=== PATIENT | male | born 1935 | race Caucasian/White ===

== ENCOUNTER 2017-01-14 13:02 | Observation (INO) | payer MEDICARE, OTHER ==
[2017-01-14] MEDS ORDERED: Acetaminophen 325 MG TAB PO PRN (15:03)
[2017-01-14] MEDS ORDERED: cloNIDine 0.1 MG TAB PO PRN (15:03)
[2017-01-14] MEDS ORDERED: Ondansetron HCl/PF 4 MG/2 ML Vial IVP PRN (15:03)
[2017-01-14] MEDS ORDERED: Nitroglycerin 0.4 MG TAB (25 Tab Bottle) SL PRN (15:03)
[2017-01-14] MEDS ORDERED: hydrALAZINE 20 MG/ML VIAL SLOW IVP PRN (15:03)
[2017-01-14] MEDS ORDERED: Benzonatate 100 MG CAP PO PRN (15:03)
[2017-01-14] MEDS ORDERED: Senokot 8.6 MG TAB PO PRN (15:03)
[2017-01-14] MEDS ORDERED: Calcium Carbonate 500 MG ChewTAB PO PRN (15:03)
[2017-01-14] MEDS ORDERED: traMADol HCl 50 MG TAB PO PRN (15:03)
[2017-01-14] MEDS ORDERED: Loratadine 10 MG TAB PO PRN (15:03)
[2017-01-14] MEDS ORDERED: Mag-Al 1200 mg/1200 mg/30 ML UDCUP PO PRN (15:03)
[2017-01-14] MEDS ORDERED: Bisacodyl 5 MG TAB PO PRN (15:03)
[2017-01-14] MEDS ORDERED: Diabetic Tussin 200 MG/10 ML UDCUP PO PRN (15:03)
[2017-01-14 15:58] LABS: Troponin I Less than 0.010 ng/mL (< 0.028)
--- NOTE | 2017-01-14 16:10 | ULT ---
BILATERAL CAROTID DUPLEX ULTRASOUND INCLUDING COLOR AND SPECTRAL DOPPLER IMAGING: History: 81-year-old male with TIA. FINDINGS: Minimal visual plaque in the origins of the right and left ICAs. PSV right ICA 100 cm/sec, EDV 34 cm/sec, ICA/CCA ratio of 1.2. PSV left ICA 65 cm/sec, EDV 13 cm/sec, ICA/CCA ratio is 0.6. Vertebral flow is antegrade. IMPRESSION: No hemodynamically significant stenosis. Very minimal visual plaque evidence for carotid artery compa rial vascular disease. POS: [facility]
[2017-01-14 16:37] VITALS: BMI 29.0
--- NOTE | 2017-01-14 18:41 | MRI ---
EXAM: MRI OF BRAIN WITHOUT CONTRAST 01/14/17 HISTORY: Transient ischemic attack. COMPARISON: None. TECHNIQUE: Brain MRI is performed without intravenous gadolinium administration. Multisequential, multiplanar i maging is performed. FINDINGS: No hemorrhage on the axial gradient echo sequence. No parenchymal mass, mass effect, or midline shift. Age appropriate atrophy. Cortical márquez-white matter differentiation is preserved. No evidence of hydrocephalus. Ventricles and sulci are patent and symmetric. T2 and FLAIR white matter hyperintensity due to chronic small vessel ischemic changes are noted. There is mild mass effect upon the left aspect of the brain stem due to ectasia of the left vertebra l artery. Central arterial flow voids are maintained. Absent restricted diffusion. Calvarium has a normal marrow signal intensity. Midline brain parenchymal structures are unremarkabl e. Minimally mucosal thickening of the ethmoid air cells. Mucous retention cyst in maxillary sinuses. M astoid air cells are adequately aerated. IMPRESSION: 1. No restricted diffusion. No acute infarct. 2. Chronic small vessel ischemic change of the white matter. POS: [facility]
[2017-01-14 19:08] LABS: Troponin I Less than 0.010 ng/mL (< 0.028)
[2017-01-14] MEDS ORDERED: Atorvastatin Calcium 20 MG TAB PO SCH (21:00)
[2017-01-14] MEDS ORDERED: FLU VACC TS2017-18 (>65YR) 0.5 ML SYRINGE IM ONE (21:00)
--- NOTE | 2017-01-14 21:16 | HP ---
DATE OF ADMISSION: 01/14/2017 PRIMARY CARE PHYSICIAN: Alejandro Bernal M.D. CHIEF COMPLAINT: Fall, imbalance and slurred speech. HISTORY OF PRESENT ILLNESS: Mr. Ortiz is a very pleasant 81-year-old male without any sig nificant comorbidities: who presented to the emergency room with the above-mentioned complaints. H istory is mainly obtained by the patient himself and supplemented by his present in the room. Electronic medical records have been reviewed and the case has been discussed with the admitting ER physician, Dr. Dennison. According to Mr. Ortiz, he woke up in the middle of last night to go to the bathroom, but felt lele ai weak and fell. He was able to catch himself and did not hit his head. He tried to get up, but fell again. At this time, he called his who helped him in the sitting position. She noticed t hat he has broke out in a sweat and walked him to the bedroom. There, his speech changed and he sta rted to slur his words. These symptoms are all short lasting and within few minutes, he was back to himself. They decided to wait until morning and called the primary care physician in the morning w ho told them to come to the emergency room. They presented to [facility] Emergency Room and was found to have atrial fibrillation and 12-le ad EKG with 85 beats per minute. The patient has no history of such and this is a new finding for h im. He was transferred to our facility for whatever reasons and is now being admitted to stroke jaye or for possible TIA and new onset atrial fibrillation. In the emergency room, he has received aspirin and is currently asymptomatic and feeling well. Jose ortiz is at bedside. The patient denies any recent illnesses. No nausea or vomiting. No chest pain, orthopnea, PND. He does feel somewhat weak lately, but he blames it on excessive driving. PAST MEDICAL HISTORY: History of prostate cancer, status post resection, it is in remission. PAST SURGICAL HISTORY: 1. Cholecystectomy. 2. Penile prosthesis implant. 3. Prostatectomy. SOCIAL HISTORY: He is and is very active. 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 No history of drug, tobacco or alcohol abuse. FAMILY HISTORY: Significant for diabetes and hypertension, but otherwise he denies any history of c oronary artery disease or strokes in his family. One of his brothers had Agent Dukes exposure and of lung cancer. ALLERGIES: No known medication allergies. CURRENT MEDICATIONS: None. The patient only take some nfmd-old-neyqgno vitamin supplements. REVIEW OF SYSTEMS: The following complete review of systems was negative, unless otherwise mentione d in the HPI or below: Constitutional: Weight loss or gain, ability to conduct usual activities. Skin: Rash, itching. Eyes: Double vision, pain. ENT/Mouth: Nose bleeding, neck stiffness, pain, tenderness. Cardiovascular: Palpitations, dyspnea on exertion, orthopnea. Respiratory: Shortness of breath, wheezing, cough, hemoptysis, fever or night sweats. Gastrointestinal: Poor appetite, abdominal pain, heartburn, nausea, vomiting, constipation, or diar ajay. Genitourinary: Urgency, frequency, dysuria, nocturia. Musculoskeletal: Pain, swelling. Neurologic/Psychiatric: Anxiety, depression. Allergy/Immunologic: Skin rash, bleeding tendency. It is negative except for those mentioned in the history and physical. LABORATORY DATA: 1. Labs are reviewed from [facility]. His serum chemistries are unremarkable. BUN 1 4, creatinine 1.28, bicarbonate 25. Sodium 144, potassium 4.1. Liver enzymes within normal limits. Cardiac enzymes below assay limit. 2. PT, PTT and INR are within normal limits. 3. CBC shows WBCs at 7, hemoglobin 15.5, hematocrit 45.9, and platelet count of 233. Chest x-ray d one at [facility] is negative for any acute process. CT scan of the head done without contrast at [facility], it is read by the radiologist as negative for any acute ische candace, infarction, mass lesion or midline shift. DIAGNOSTIC DATA: A 12-lead EKG done at the emergency room at [facility] shows atrial fibrillat ion by my review with 85 beats per minute. T-wave flattening noted in V2, V3 and V4. PHYSICAL EXAMINATION: VITAL SIGNS: Upon presentation, blood pressure 166/93, heart rate 72, respirations 18, saturating 9 5% on room air, and temperature 98. GENERAL: In no acute distress, awake, alert, oriented x3, very pleasant and no slurred speech notic ed. HEENT: Mucous membrane is moist and pink. No oropharyngeal exudate or erythema. Head is normoceph alic and atraumatic. Pupils are equal and reactive to light and accommodation. Extraocular movemen ts are intact. NECK: Supple without any lymphadenopathy, JVD or bruit. CHEST: Clear to auscultation without any wheezing, rales or rhonchi. Rate and rhythm is regular wi thout any murmur, rubs or gallops. ABDOMEN: Soft, nontender, nondistended, positive bowel sounds. EXTREMITIES: Free of any cyanosis, clubbing, or edema. NEUROLOGIC: Nonfocal. Cranial nerves II-XII grossly intact. Muscle strength is 5/5 in all 4 extre mities with normal sensation. Ieczll-ku-zeym testing is intact. Gait is not checked. PSYCHIATRIC: Normal affect. SKIN: Free of any rashes or bruises. Feels warm and dry to touch. IMPRESSION AND PLAN: 1. Transient ischemic attack/cerebrovascular accident. His history is suggestive of cerebrovascula r accident. He will be started and continued on full dose aspirin along with a statin for now. We will check a lipid panel. We will consult Neurology for further recommendations. They have ordered an echocardiogram as well as MRI of the brain, carotid ultrasound will be ordered for him. Most li denise source is embolic, given his new diagnosis of atrial fibrillation. He will be admitted to the stroke floor and stroke team will also be consulted. 2. New onset atrial fibrillation. The patient's CHADs VASc 2 score is low. However, if he indeed has had a cerebrovascular accident on MRI and because of symptoms suggest at least transient ischemi c attack: He might be a candidate for long-term anticoagulation. At this time, he is rate controll ed and will be monitored on telemetry. We will consult Cardiology for further recommendations and o btain a transthoracic echocardiogram. Notably, his repeat EKG showed normal sinus rhythm and some P VCs only. He might benefit from during Holter monitor. 3. History of prostate cancer. He is in remission. 4. Deep venous thrombosis and gastrointestinal prophylaxis. 5. Code status: FULL CODE. Discussed with the patient. DISPOSITION: Mr. Ortiz is being admitted under observation status for possible TIA/CVA and new onse t atrial fibrillation. Further management will depend upon his clinical course. Currently, he is h emodynamically stable.
[2017-01-14 22:09] LABS: Troponin I Less than 0.010 ng/mL (< 0.028)
[2017-01-15 06:06] LABS: #Basophils 0.1 thou/uL (0.0-0.2); #Eosinphils 0.1 thou/uL (0.0-0.7); #Lymphocytes 2.4 thou/uL (1.20-3.40); #Monocytes 0.6 thou/uL (0.11-0.59); #Neutrophils 4.1 thou/uL (1.40-6.50); %Basophils 0.8 % (0.0-1.0); %Eosinophils 1.1 % (0.0-10.0); %Lymphocytes 33.2 % (21.0-51.0); %Monocytes 8.3 % (0.0-10.0); Hematocrit 43.6 % (42.0-52.0); Mean Platelet Volume 7.3 fL (7.4-10.4); Red Blood Cell (RBC) Count 4.71 mill/uL (4.70-6.10); White Blood Cell (WBC) Count 7.2 thou/uL (4.8-10.8)
[2017-01-15 06:18] LABS: Anion Gap 12 mmol/L (10-20); BUN (Urea Nitrogen) 14 mg/dL (8.4-25.7); Calc. Creatinine Clearance 62 mL/min (70-130); Calcium 8.7 mg/dL (7.8-10.44); Carbon Dioxide 25 mmol/L (23-31); Chloride 105 mmol/L (98-107); Cholesterol 215 mg/dl (< 200 Desired); Estimated GFR-MDRD 55; LDL Cholesterol, Calculated 161 mg/dL
[2017-01-15] MEDS: Enoxaparin Sodium 40 MG/0.4 ML SYRINGE SC SCH (08:50)
[2017-01-15] MEDS: Aspirin 325 mg Enteric Coated Tablet PO SCH (08:58)
[2017-01-15] MEDS ORDERED: FLU VACC TS2017-18 (>65YR) 0.5 ML SYRINGE IM ONE (09:00)
[2017-01-15] MEDS: Metoprolol Tartrate 25 MG TAB PO SCH ×2 (09:37→20:35)
--- NOTE | 2017-01-15 12:05 | PDOC.PN ---
- Subjective Encounter Start Date: 01/15/17 Encounter Start Time: 12:04 Subjective: feels well. no palpitations/muscle weakness/chest pain/SOB/dizziness -: no imbalance - Objective MAR Reviewed: Yes Vital Signs & Weight: Vital Signs (12 hours) Temp Pulse Resp BP Pulse Ox 01/15/17 11:52 98.3 F 70 20 131/88 95 01/15/17 08:00 98.3 F 73 20 01/15/17 07:43 98.3 F 73 20 157/84 H 97 01/15/17 03:12 97.7 F 93 12 136/86 94 L Weight Weight 215 lb 6.4 oz I&O: 01/14/17 01/15/17 01/16/17 06:59 06:59 06:59 Intake Total 360 Balance 360 Result Diagrams: 01/15/17 04:45 01/15/17 04:45 Additional Labs: Laboratory Tests 01/14/17 01/14/17 01/14/17 15:25 18:20 21:39 Troponin I Less than 0.010 Less than 0.010 Less than 0.010 Triglycerides Cholesterol LDL Cholesterol, Calc HDL Cholesterol 01/15/17 04:45 Troponin I Triglycerides 106 Cholesterol 215 H LDL Cholesterol, Calc 161 HDL Cholesterol 33 Radiology Reviewed by me: Yes (MRI brain-no CVA.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) EKG Reviewed by me: Yes (NSR) Phys Exam - Physical Examination Constitutional: NAD HEENT: PERRLA, moist MMs, sclera anicteric, oral pharynx no lesions Neck: no nodes, no JVD, supple, full ROM Respiratory: no wheezing, no rales, no rhonchi, clear to auscultation bilateral Cardiovascular: RRR, no significant murmur, no rub, gallop Gastrointestinal: soft, non-tender, no distention, positive bowel sounds Musculoskeletal: no edema, pulses present Neurological: non-focal, normal sensation, moves all 4 limbs Psychiatric: normal affect, A&O x 3 Skin: no rash Dx/Plan (1) TIA (transient ischemic attack) Status: Suspected Comment: cont ASA w statin.neurology consulted (2) Paroxysmal A-fib Code(s): I48.0 - PAROXYSMAL ATRIAL FIBRILLATION Status: Acute Comment: resolved. (3) HTN (hypertension) Code(s): I10 - ESSENTIAL (PRIMARY) HYPERTENSION Status: Chronic (4) HLD (hyperlipidemia) Code(s): E78.5 - HYPERLIPIDEMIA, UNSPECIFIED Status: Chronic (5) Imbalance Code(s): R26.89 - OTHER ABNORMALITIES OF GAIT AND MOBILITY Status: Acute - Plan PT/OT, out of bed/ambulate, DVT proph w/SCDs Blanace issues can be due to brainstem compression from ectatic vertebral a -: TIA can not be ruled out so cont ASA.statin. -: add low dose BB for high BP.monitor HR. -: cardiology & Neurology recs pending. -: hold anticoagulation for now untill seen by cardiology. * . Review of Systems - Review of Systems Constitutional: negative: Fever, Chills, Sweats, Weakness, Malaise, Other Respiratory: negative: Cough, Dry, Shortness of Breath, Hemoptysis, SOB with Excertion, Pleuritic Pain, Sputum, Wheezing Cardiovascular: negative: Chest Pain, Palpitations, Orthopnea, Paroxysmal Noc. Dyspnea, Edema, Light Headedness, Other Gastrointestinal: negative: Nausea, Vomiting, Abdominal Pain, Diarrhea, Constipation, Melena, Hematochezia, Other Genitourinary: negative: Dysuria, Frequency, Incontinence, Hematuria, Retention , Other Musculoskeletal: negative: Neck Pain, Shoulder Pain, Arm Pain, Back Pain, Hand Pain, Leg Pain, Foot Pain, Other Neurological: negative: Weakness, Numbness, Incoordination, Change in Speech, Confusion, Seizures, Other - Medications/Allergies Allergies/Adverse Reactions: Allergies Allergy/AdvReac Type Severity Reaction Status Date / Time No Known Allergies Allergy Verified 01/14/17 16:30 Medications: Current Medications Acetaminophen (Tylenol) 650 mg PO Q4H PRN PRN Reason: Headache/Fever or Pain Al Hydroxide/Mg Hydroxide (Maalox) 30 ml PO Q6H PRN PRN Reason: Heartburn or Indigestion Aspirin (Ecotrin) 325 mg PO DAILY [facility] Last Admin: 01/15/17 08:58 Dose: 325 mg Atorvastatin Calcium (Lipitor) 20 mg PO HS [facility] Last Admin: 01/14/17 21:16 Dose: Not Given Benzonatate (Tessalon) 100 mg PO Q4H PRN PRN Reason: Cough Bisacodyl (Dulcolax) 10 mg PO DAILYPRN PRN PRN Reason: Constipation Calcium Carbonate (Tums) 1,000 mg PO Q4H PRN PRN Reason: Heartburn or Indigestion Clonidine (Catapres) 0.1 mg PO Q4H PRN PRN Reason: Systolic BP > 180 Enoxaparin Sodium (Lovenox) 40 mg SC 0900 [facility] Last Admin: 01/15/17 08:50 Dose: 40 mg Guaifenesin (Robitussin Sf) 200 mg PO Q4H PRN PRN Reason: Cough Hydralazine HCl (Apresoline) 10 mg SLOW IVP Q4H PRN PRN Reason: Systolic BP > 180 Loratadine (Claritin) 10 mg PO DAILYPRN PRN PRN Reason: Sinus Symptoms Metoprolol Tartrate (Lopressor) 12.5 mg PO BID [facility] Last Admin: 01/15/17 09:37 Dose: 12.5 mg Nitroglycerin (Nitrostat) 0.4 mg SL Q5MIN PRN PRN Reason: Chest Pain Ondansetron HCl (Zofran) 4 mg IVP Q6H PRN PRN Reason: Nausea/Vomiting Senna (Senokot) 2 tab PO HSPRN PRN PRN Reason: Constipation Tramadol HCl (Ultram) 50 mg PO Q4H PRN PRN Reason: Moderate Pain (4-6)
--- NOTE | 2017-01-15 17:03 | CON ---
DATE OF CONSULTATION: 01/15/2017 LOCATION: [address] [place] [address], [facility]. CONSULTING PHYSICIAN: Cassie Contreras MD. REASON FOR CONSULTATION: TIA. HISTORY OF PRESENT ILLNESS: The history is obtained from the chart review and from the patient who was able to provide history. The patient is a pleasant 81-year-old male with past medical history of prostate cancer, status post resection in remission, who presented to the ER with the fo llowing symptoms. He said that he woke up around 1:30 this morning to go to the bathroom. He said he rolled over in the bed and when he got up to go to the bathroom, he felt off balance and he said he went down on his knees. He did not have a fall and did not hit his head. At that time, he olson d his to help him. She noticed that he had broken out in a sweat and walked him to the bedroom . They noticed that his speech was slurred. The symptoms lasted only for a couple of minutes and th en resolved. He denies any loss of consciousness, chest pain, shortness of breath, palpitations, ir regular heart rate, loss of consciousness, seizure-like episode. He denies any headaches, vision ch anges, one-sided weakness, tingling, or numbness. They decided to wait until the morning and called his primary care physician who told them to come to the ER. He presented to [facility] and was found to have atrial fibrillation. The patient does not have any prior history of atrial fibrillation. He was subsequently transferred to our facility and was subsequently admitted to the stroke unit for possible TIA and new onset atrial fibrillation. In the ER, he had received aspirin and he has been asymptomatic since his episode. He says that he has not had any recurrence of his symptoms. He feels completely back to his normal self currently. Denies any symptoms. PAST MEDICAL HISTORY: As mentioned in the HPI. PAST SURGICAL HISTORY: Cholecystectomy, prostatectomy. SOCIAL HISTORY: No history of drug use, tobacco use or alcohol abuse. FAMILY HISTORY: Diabetes and hypertension. ALLERGIES: No known allergies. HOME MEDICATIONS: None. REVIEW OF SYSTEMS: As mentioned in the HPI, otherwise negative. PHYSICAL EXAMINATION: VITAL SIGNS: Temperature 98.2, pulse rate 85, respiratory rate 20, O2 sats 93-95% on room air, bloo d pressure 144/89, he has not been hypotensive since he has been admitted. GENERAL: Well-developed, well-nourished male in no apparent distress. HEENT: Normocephalic, atraumatic. Normal sclerae. NECK: Supple. RESPIRATORY: Clear to auscultation bilaterally. CARDIOVASCULAR: Regular rate and rhythm. NEUROLOGIC: The patient is awake, alert, oriented x3. Speech and language intact. No aphasia, no dysarthria noted. Cranial nerves: Pupils are 2 mm and reactive to light bilaterally. Extraocular movements are intact. Visual dubois are full bilaterally. No facial droop noted. Facial sensation intact and symmetric bilaterally. MOTOR: Normal tone and bulk. The patient had 5/5 strength in bilateral upper and lower extremities . Sensation intact to fine touch throughout. Coordination is intact to ketpbw-iyaw-wfhpav testing and hthe-vc-yzqy test bilaterally. Reflex is normal throughout. Gait and Romberg not tested. LABORATORY DATA: CBC with a normal white cell count, normal platelets. Chemistry normal electrolyt es, LDL 161. IMAGING: The patient had MRI brain done, which did not show any acute infarct, no acute intracrania l abnormality, chronic small vessel ischemic changes noted. Carotid Doppler study did not show any significant stenosis. Echocardiogram showed ejection fraction of 55-60%, mild MR, trace TR. IMPRESSION: Brief episode of feeling unsteady, off balance, profuse sweating, slurred speech, resolv ed. RECOMMENDATIONS: 1. The patient can be continued on baby aspirin 81 mg upon discharge. 2. He can be continued on statin based on his LDL upon discharge. 3. Advised the patient to check his blood pressure, his heart rate and his sugar level during the e pisode if they happen again. 4. Advised him to make sure and monitor if he has any irregular heart rate or palpitation which nee ds to be followed up. 5. Continue medical management per primary team. 6. As mentioned before, the patient can be discharged on baby aspirin and statin. No other recomme ndations from neurological standpoint. The patient can follow up with his primary care doctor. Ple ase call us with questions.
[2017-01-15] MEDS ORDERED: Atorvastatin Calcium 20 MG TAB PO SCH (21:00)
--- NOTE | 2017-01-16 04:03 | CON ---
DATE OF CONSULTATION: 01/15/2017 REASON FOR CONSULTATION: Atrial fibrillation, possible transient ischemic attack. HISTORY OF PRESENT ILLNESS: Mr. Ortiz is an 81-year-old gentleman. The patient was transferred from [place]. The patient had an episode yesterday of weakness and fatigue. This is associated with the sensation of slurred speech. He gradually came back to normal. He went to the [facility] and was thought to have atrial fibrillation with a controlled rate of 85 beats per minute. The patient had no chest pain, pressure, heaviness, or squeezing. The cardiac enzymes were negative. PAST MEDICAL HISTORY: Prostate cancer, status post resection. PAST SURGICAL HISTORY: Cholecystectomy, prostatectomy, penile implant. FAMILY HISTORY: Diabetes. ALLERGIES: None known. MEDICATIONS: None. REVIEW OF SYSTEMS: Constitutional: No significant weight gain or loss. Vision : No changes. Hearing: No changes. Pulmonary: No cough or wheezing. Gastrointestinal: No nausea, vomiting, or diarrhea. Skin: No rashes. Neurologic: No unilateral weakness or numbness. Psychiatric: No unusual depression or anxiety. PHYSICAL EXAMINATION: GENERAL: This is a pleasant 81-year-old man resting comfortably in no distress. VITAL SIGNS: Blood pressure 144/89, pulse 85 regular. HEENT: Sclerae nonicteric. Mouth, mucous membranes are moist. NECK: Supple, no lymphadenopathy. LUNGS: Clear. No wheezing, rales, or rhonchi. CARDIAC: Normal S1, normal S2. There is no murmur, rub, or gallop. ABDOMEN: Soft, nontender, no hepatosplenomegaly. EXTREMITIES: Warm and dry. No clubbing, no cyanosis. There is no edema. Peripheral pulses were intact. LABORATORY DATA: Cholesterol level 215, LDL 161. EKG, sinus rhythm with incomplete right bundle branch block. Reviewing the EKGs sent from [place], there is an EKG done 01/14/2017, the computer read it as atrial fibrillation, but actually, it is sinus rhythm with premature atrial contractions. I do not see any documentation of atrial fibrillation. The patient did have an episode of 4-beat nonsustained ventricular tachycardia while here. ASSESSMENT: 1. Episode of weakness and fatigue, transient slurred speech of uncertain etiology. Dr. Angeles saw the patient and was not convinced that a transient ischemic attack. 2. Ejection fraction 55%-60%. 3. Incomplete right bundle branch block. 4. sinus rhythm with premature atrial contractions, No documentation of atrial fibrillation 5. one episode of non sustained Ventricular Tachycardia asymptomatic, normal EF PLAN: 1. Recommend that he proceed to stress testing. The patient is anxious to go home and wishes to have that done as an outpatient. 2. So far, I have not documented atrial fibrillation; therefore, aspirin is reasonable. 3. Agree with statin and low-dose beta-gia. He will follow up with me as an outpatient. SHELLY
[2017-01-16] MEDS: Aspirin 325 mg Enteric Coated Tablet PO SCH (08:46)
[2017-01-16] MEDS: Enoxaparin Sodium 40 MG/0.4 ML SYRINGE SC SCH (08:46)
[2017-01-16] MEDS: Metoprolol Tartrate 25 MG TAB PO SCH (08:46)
[2017-01-16 12:26] VITALS: BP 153/97; TEMP 98.7
--- NOTE | 2017-01-16 14:47 | DIS ---
DATE OF ADMISSION: 01/14/2017 DATE IF DISCHARGE: 01/16/2017 CONDITION AT THE TIME OF DISCHARGE: Stable and improved. DISCHARGE DIAGNOSES: 1. Nonsustained ventricular tachycardia and premature ventricular contractions. 2. Hypertension. 3. Dyslipidemia. 4. Transient ischemic attack. DISCHARGE DISPOSITION: Home. PRIMARY CARE PHYSICIAN: Dr. Alejandro Bernal. DISCHARGE MEDICATIONS: Metoprolol tartrate 12.5 mg p.o. b.i.d., atorvastatin 20 mg daily, aspirin 8 1 mg daily. CONSULTATIONS: Include, 1. Neurology, Dr. Param Angeles. 2. Cardiology, Dr. Stephen Doherty. PROCEDURES DONE IN THE HOSPITAL: Include, 1. MRI of the brain, which is negative for any acute infarction. There is a mild mass effect upon the left aspect of the brainstem due to ectasia of the left vertebral artery. 2. Carotid Doppler ultrasound, which is negative for any hemodynamically significant stenosis. 3. Transthoracic echocardiogram, which shows EF of 55%-60% with moderate left atrial dilatation, mi ld mitral regurgitation, and trace tricuspid regurgitation, otherwise unremarkable. ADMISSION HISTORY: Mr. Ortiz is a very pleasant 81-year-old male without any significant past medical history, who presented to the emergency room after sustaining a fall and having feeling s of imbalance. He was hypertensive upon presentation, but his symptoms have resolved. He came as a transfer from outside emergency room from [facility]. There an EKG was done, which was read as atrial fibrillation. Please see admission history and physical for further details. T he patient was admitted for further workup of questionable atrial fibrillation and rule out transien t ischemic attack. HOSPITAL COURSE: The patient remained rather asymptomatic throughout his hospitalization. He did n ot have any symptoms. He was evaluated by Occupational Therapy and Physical Therapy, and they clear ed him for discharge to home, as he did not require any assistance. He walked 350 feet without help with the physical therapist. His labs were followed and his total cholesterol was found to be elev ated at 215 with LDL of 161. Serial cardiac enzymes were done and were negative x3. He was started on aspirin and statin, which were continued for TIA. His MRI, carotid Doppler, and echocardiogram were rather unremarkable. Neurology was consulted as part of the stroke workup, and Dr. Param Angeles saw the patient and recommended continuation of aspirin and statin. It was unclear if his symptoms were secondary to a TIA or because of ectopic beats. Dr. Doherty from Cardiology team was consulted with regard to questionable atrial fibrillation. He r eviewed his EKG and reported that this is most likely not an atrial fibrillation, but some ectopic b eats. He was started on beta gia, as his blood pressure was running high as well and he was oth erwise cleared by Cardiology for discharge. He needs to undergo a nuclear medicine stress test, but at this time, he wants to get it done as an outpatient. He will [facility] and will undergo stress testing. I have discussed this with the patient, who verba lized understanding. On the day of discharge, he is hemodynamically stable and eager to go home. PHYSICAL EXAMINATION: Includes, VITAL SIGNS: Temperature 98.7, pulse of 70, respirations 20, saturating 94% on room air, blood pres sure 153/97. GENERAL EXAMINATION: In no acute distress, awake, alert, oriented x3. CHEST: Clear to auscultation without any wheezing, rales, or rhonchi. Rate and rhythm is regular w ithout any murmur, rubs, or gallops. NEUROLOGICAL EXAMINATION: Nonfocal. At this time, the patient is cleared by Neurology and Cardiology for discharge as well. As TIA maritza ot be ruled out, this would be his primary discharge diagnosis. Dietary indiscretion is advised.
== END 2017-01-16 13:14 | disposition home or self-care (01) ==
LOC: ERS 13:02 → 2SE 15:09
PROVIDERS: ADMIT Internal Medicine; ATTEND Internal Medicine
DX: I47.2 Ventricular tachycardia (principal); I49.3 Ventricular premature depolarization; I10 Essential (primary) hypertension; E78.5 Hyperlipidemia, unspecified; G45.9 Transient cerebral ischemic attack, unspecified; C61 Malignant neoplasm of prostate; R26.89 Other abnormalities of gait and mobility; Z79.82 Long term (current) use of aspirin; Z79.899 Other long term (current) drug therapy; Z96.89 Presence of other specified functional implants; Z90.49 Acquired absence of other specified parts of digestive tract; Z90.79 Acquired absence of other genital organ(s); Z91.81 History of falling
CPT/HCPCS: 70551; 80048; 80061; 84484 ×2; 85025; 93005; 93306; 93880; 96372 ×2; 97139 ×4; 99285; G0008; G0378; G8978; G8979; G8980; G8987; G8988; G8989; Q2036; 36415; 90471; 90682; J1650

== ENCOUNTER 2017-07-08 12:56 | Outpatient (CLI) | payer MEDICARE, OTHER ==
--- NOTE | 2017-07-08 14:08 | ULT ---
VENOUS DOPPLER ULTRASOUND OF THE LEFT LOWER EXTREMITY: Date: 07/08/17 HISTORY: Edema of left lower extremity, left knee pain. TECHNIQUE: Rosa scale ultrasound with color flow and spectral Doppler imaging of the deep venous systems of the left lower extremity is performed. FINDINGS: There is good flow, compression, and augmentation noted in the left common femoral, femoral, deep fem oral, popliteal, posterior tibial, and greater saphenous veins. IMPRESSION: No evidence of deep venous thrombosis in the left lower extremity. POS: [facility]
== END 2017-07-08 12:57 | disposition home or self-care (01) ==
LOC: SCSULT 12:56
PROVIDERS: ATTEND Family Medicine
DX: R60.9 Edema, unspecified (principal); M17.12 Unilateral primary osteoarthritis, left knee

== ENCOUNTER 2017-10-07 15:36 | Outpatient (CLI) | payer MEDICARE, OTHER ==
--- NOTE | 2017-10-07 15:58 | RAD ---
CHEST TWO VIEWS: History: Pre op. Comparison: 03-26-15 FINDINGS: Cardiac silhouette and pulmonary vasculature are unremarkable. Linear scarring at the lung bases has progressed since the previous study. Mediastinum is midline. No confluent airspace consolidation, pne umothorax or pleural fluid. IMPRESSION: Chronic type findings. No active cardiopulmonary abnormalities are demonstrated. POS: [facility]
[2017-10-07 16:09] LABS: PTT 32.3 SEC (22.9-36.1)
[2017-10-07 16:13] LABS: #Basophils 0.1 thou/uL (0.0-0.2); #Eosinphils 0.1 thou/uL (0.0-0.7); #Monocytes 0.7 thou/uL (0.11-0.59); #Neutrophils 4.1 thou/uL (1.40-6.50); %Basophils 1.8 % (0.0-1.0); %Eosinophils 1.7 % (0.0-10.0); %Lymphocytes 36.9 % (21.0-51.0); %Monocytes 9.2 % (0.0-10.0); %Neutrophils 50.5 % (42.0-75.0); Hemoglobin 14.4 g/dL (14.0-18.0); Mean Corpuscular HGB CONC 34.2 g/dL (32.0-36.0); Mean Corpuscular Hemoglobin 28.7 pg (27.0-31.0); Mean Corpuscular Volume 83.7 fL (78.0-98.0); Mean Platelet Volume 8.1 fL (7.4-10.4); Platelet Count 217 thou/uL (130-400); RBC Distribution Width 12.1 % (11.5-14.5); Red Blood Cell (RBC) Count 5.03 mill/uL (4.70-6.10); White Blood Cell (WBC) Count 8.1 thou/uL (4.8-10.8)
[2017-10-07 16:17] LABS: ALT (SGPT) 16 U/L (8-55); AST (SGOT) 17 U/L (5-34); Albumin 4.3 g/dL (3.4-4.8); Alkaline Phosphatase 70 U/L (40-150); Anion Gap 14 mmol/L (10-20); BUN (Urea Nitrogen) 18 mg/dL (8.4-25.7); Bilirubin, Total 0.3 mg/dL (0.2-1.2); Calc. Creatinine Clearance 0 mL/min (70-130); Calcium 9.8 mg/dL (7.8-10.44); Carbon Dioxide 29 mmol/L (23-31); Chloride 105 mmol/L (98-107); Estimated GFR-MDRD 55; Glucose 89 mg/dL (83-110); Potassium 3.7 mmol/L (3.5-5.1); Protein, Total 7.3 g/dL (5.8-8.1); Sodium 144 mmol/L (136-145)
[2017-10-07 16:25] LABS: Prothrombin Time 13.2 SEC (12.0-14.7)
[2017-10-07 16:55] LABS: Thyroid Stimulating Hormone 3.3206 uIU/mL (0.35-4.94)
== END 2017-10-07 15:37 | disposition home or self-care (01) ==
LOC: ER/OP 15:36 → SCSRAD 15:36 → EDSTATUS 16:03
PROVIDERS: ATTEND Family Medicine
DX: I47.2 Ventricular tachycardia (principal); D68.9 Coagulation defect, unspecified; I10 Essential (primary) hypertension
CPT/HCPCS: 36415; 71046; 80053; 84439; 84443; 85025; 85610; 85730

== ENCOUNTER 2017-10-13 06:03 | Inpatient (IN) | payer MEDICARE, OTHER ==
[2017-10-13] MEDS ORDERED: CEFAZOLIN/Water 2 GM/20 ML SYRINGE ONE (06:28)
[2017-10-13] MEDS ORDERED: Sodium Chloride 0.9% 100 ML ONE (06:28)
[2017-10-13] MEDS ORDERED: Midazolam HCl 2 mg/2 ml Vial ONE (06:33)
[2017-10-13] MEDS ORDERED: Lidocaine 1% (PF) 30 ML VIAL ONE (06:33)
[2017-10-13] MEDS ORDERED: Fentanyl 100 MCG/2 ML VIAL ONE ×2 (06:33→08:00)
[2017-10-13] MEDS ORDERED: Bupivacaine PF 0.5% 30 ML VIAL ONE (06:43)
[2017-10-13] MEDS ORDERED: Vancomycin HCl 1.5 GM in Sodium Chloride 0.9% 250 ML 300 ML IVPB SCH ×2 (06:45→19:00)
[2017-10-13] MEDS ORDERED: Ropivacaine 0.2% HCl/PF (40 MG/20 ML VIAL) ONE (06:56)
[2017-10-13] MEDS ORDERED: Ropivacaine 0.5% HCl/PF (150 MG/30 ML VIAL) ONE (06:56)
[2017-10-13] MEDS ORDERED: Ondansetron HCl/PF 4 MG/2 ML Vial ONE (07:08)
[2017-10-13] MEDS ORDERED: PROPOFOL 200 MG/20 ML VIAL ONE (07:08)
[2017-10-13] MEDS ORDERED: traMADol HCl 50 MG TAB PO PRN ×2 (07:20→09:39)
[2017-10-13] MEDS ORDERED: HYDROcodone/Acetaminophen 10/325 mg Tablet PO PRN ×2 (07:20)
[2017-10-13] MEDS ORDERED: Ondansetron HCl/PF 4 MG/2 ML Vial IVP PRN ×3 (07:20→09:51)
[2017-10-13] MEDS ORDERED: Zolpidem Tartrate 5 MG TAB PO PRN ×2 (07:20→09:39)
[2017-10-13] MEDS ORDERED: Promethazine HCl 25 MG/ML VIAL IM PRN ×3 (07:20→09:51)
[2017-10-13] MEDS ORDERED: Acetaminophen 325 MG TAB PO PRN (09:39)
[2017-10-13] MEDS ORDERED: Fentanyl 100 MCG/2 ML VIAL SLOW IVP PRN (09:39)
[2017-10-13] MEDS ORDERED: diphenhydrAMINE 25 MG CAP PO PRN (09:39)
[2017-10-13] MEDS ORDERED: CEFAZOLIN/Water 2 GM/20 ML SYRINGE SLOW IVP SCH (09:45)
[2017-10-13] MEDS ORDERED: Tranexamic Acid 1,000 MG in Sodium Chloride 0.9% 100 ML IVPB SCH (09:45)
[2017-10-13] MEDS ORDERED: Promethazine HCl 25 MG/ML VIAL SLOW IVP PRN (09:51)
--- NOTE | 2017-10-13 09:54 | OP ---
DATE OF PROCEDURE: 10/13/2017 PREOPERATIVE DIAGNOSIS: Left knee osteoarthrosis. POSTOPERATIVE DIAGNOSIS: Left knee osteoarthrosis. PROCEDURE PERFORMED: Left total knee replacement using WiChorus pinless navigation. SURGEON: Jevon Fraser M.D. AIRPLANE FUELER: None. BLOOD LOSS: Minimal. COMPLICATIONS: None. ANESTHESIA: He had general anesthetic. He also had a preoperative block. IMPLANTS: To the left knee, [place] Triathlon total knee system, the femur was size 6 cruciate retai jose, the tibial baseplate was size 5 universal, we used a 5 x 9 mm CS X3 tibial bearing and an asymm etric 29 x 9 X3 patella. CONDITION: He did go to the recovery room in stable condition. INDICATIONS: An 82-year-old male who has failed nonoperative treatment. At this time, presented for knee replacement. PROCEDURE IN DETAIL: After all appropriate consent forms were explained and signed, the patient was t aken back to the Operating Room and at this time was given general anesthetic. Once the level of anes thesia was appropriate, a well-padded tourniquet was placed on the left leg and the leg was then prep ped and draped in standard surgical fashion. The limb was exsanguinated and tourniquet taken up to 30 0 mmHg. Midline incision was made with a 10 blade down through the skin and subcutaneous tissue. Bovi e electrocautery was used to coagulate any brisk venous bleeding. A new blade was used to make a medi al parapatellar arthrotomy. Small subperiosteal release was performed medially and excess fat pad was removed. The knee was flexed up to gain access to the femur. The femur was navigated and distal femo ral resection was made. Epicondylar access was used to align our sizing jig and this was pinned in pl fausto. We sized our femur to be a size 6 cruciate retaining, 4:1 cutting block was applied and pinned. Anterior and posterior chamfer cuts were then made. We navigated out our proximal tibia and made our proximal tibial resection. Spreaders were used to remove any posterior osteophytes off the back of th e femur as well as remaining meniscal tissue. A long alignment cullen was then used to achieve correct r otation of our tibial baseplate and a size 5 universal was chosen. This was pinned in place. We trial ed the polyethylene and a 5 x 9 mm CS X3 tibial bearing polyethylene gave us full extension and good stability throughout range of motion. Two towel clips and a saw were used to cut our patella. Three l ug nuts were drilled and an asymmetric 29 x 9 X3 was trialed which sat nicely in the trochlear groove . We then drilled our femur and punched our tibia. All components were removed. The knee was thorough ly irrigated and dried. Cement was mixed into the cement gun on the back table. Components were then placed. The knee was held out in full extension until the cement had dried. All excess bone cement wa s removed. Multiple #2 Vicryl stitches as well as a Quill was used to close our extensor mechanism. 0 Quill followed by a running Monoderm was then used to close the skin. Surgicel glue was then used o n the skin. Once this had dried, soft tissue dressing was applied to the limb, tourniquet was let ruddy n, and the toes pinked up nicely. The patient was then awakened and taken to the Recovery Room in st able condition. All counts were correct at the end of the case. The patient did receive preoperative IV antibiotics. The patient was injected with Exparel for postoperative pain relief.
[2017-10-13] MEDS: Sodium Chloride 0.9% 1,000 ML IV SCH ×2 (10:10→20:18)
[2017-10-13] MEDS: traMADol HCl 50 MG TAB PO PRN ×2 (14:37→23:19)
[2017-10-13] MEDS: CEFAZOLIN/Water 2 GM/20 ML SYRINGE SLOW IVP SCH ×2 (15:32→23:36)
[2017-10-13] MEDS: Aspirin 81 mg Enteric Coated Tablet PO SCH (20:15)
[2017-10-13] MEDS ORDERED: Metoprolol Tartrate 25 MG TAB PO SCH (23:00)
[2017-10-14] MEDS: Sodium Chloride 0.9% 1,000 ML IV SCH ×2 (05:12→13:32)
--- NOTE | 2017-10-14 05:26 | CON ---
DATE OF CONSULTATION: 10/13/2017 REASON FOR CONSULTATION: Medical management. HISTORY OF PRESENT ILLNESS: The patient is an 82-year-old male with a history of degenerative joint disease, failing conservative therapy. The patient has had several falls related to this. Ultimatel y, the patient underwent a total left knee replacement this morning. The patient reports he is havin g some pain in his posterior tendon area of the knee, but otherwise he is without complaint and feeli ng generally well. REVIEW OF SYSTEMS: Ten-system review was negative other than the pain related to his knees and arthr itis. PAST MEDICAL HISTORY: Notable for history of prostate cancer, nephrolithiasis, hypertension, hyperli pidemia with history of remote ventricular tachycardia, history of TIA in 01/2017. PAST SURGICAL HISTORY: Prostatectomy, penile implant, lithotripsy, cholecystectomy. FAMILY HISTORY: Father had heart disease. Mother had no medical issues. SOCIAL HISTORY: The patient is a nonsmoker, nondrinker, and nondrug user. He is and his spo use is present with him today. ALLERGIES: None. HOME MEDICATIONS: Lopressor 12.5 mg b.i.d., Lipitor 20 mg at bedtime, aspirin 81 mg p.o. q. day. PHYSICAL EXAMINATION: VITAL SIGNS: Temperature is 98.6, pulse 77, respirations 18, blood pressure 165/84. GENERAL APPEARANCE: Age appropriate male in no distress. He is awake, alert, oriented, pleasant, an d cooperative. HEENT: PERRL. No OP lesions. NECK: Supple and symmetric with no JVD. HEART: Regular rate and rhythm without murmurs, gallops, or rubs. RESPIRATORY: Lungs clear to auscultation bilaterally. Good chest wall expansion. Good air exchange . ABDOMEN: Soft, nontender, nondistended, positive bowel sounds, no masses, no organomegaly. EXTREMITIES: Warm and dry without evidence of DVT. ASSESSMENT AND PLAN: 1. Postop knee replacement. We will continue plan per ortho postop. 2. Remote history of ventricular tachycardia. The patient has been stable on beta gia. We will need to ensure the patient remains on perioperative beta blockade with his usual home medications. 3. Hyperlipidemia. Continue his home statin.
[2017-10-14 05:49] LABS: Hemoglobin 13.3 g/dL (14.0-18.0); Mean Corpuscular HGB CONC 33.4 g/dL (32.0-36.0); Mean Corpuscular Hemoglobin 29.9 pg (27.0-31.0); Mean Corpuscular Volume 89.7 fL (78.0-98.0); Mean Platelet Volume 7.5 fL (7.4-10.4); Platelet Count 210 thou/uL (130-400); Red Blood Cell (RBC) Count 4.43 mill/uL (4.70-6.10); White Blood Cell (WBC) Count 12.2 thou/uL (4.8-10.8)
[2017-10-14] MEDS: Ferrous Gluconate 324 MG TAB PO SCH ×2 (09:00→20:25)
[2017-10-14 09:31] VITALS: BMI 31.5
[2017-10-14] MEDS: Multivitamin W/ Minerals 1 TAB PO SCH (09:42)
[2017-10-14] MEDS: Ropivacaine HCl/PF 250 ML in Premix Bag 1 BAG NERVE BLCK SCH (10:20)
[2017-10-14] MEDS: Aspirin 81 mg Enteric Coated Tablet PO SCH ×2 (10:24→20:26)
[2017-10-14] MEDS: CeleCOXIB 100 MG CAP PO SCH (10:24)
[2017-10-14] MEDS: Metoprolol Tartrate 25 MG TAB PO SCH ×2 (10:29→20:24)
[2017-10-14] MEDS: Senokot S 8.6-50 MG TAB PO SCH ×2 (11:43→20:25)
--- NOTE | 2017-10-14 14:11 | PRG ---
DATE OF SERVICE: 10/14/2017 SUBJECTIVE: The patient reports he is feeling well. He still has some pain in the posterior left kn ee, but has no other symptoms today. He has been working with physical therapy, but he has not been up on his feet and walking as of yet today. OBJECTIVE: VITAL SIGNS: Temperature 98.5, pulse 81, respirations 18, O2 sat 94% on 2 liters, BP is 131/76. GENERAL APPEARANCE: Age appropriate male in no distress. Awake, alert, oriented, pleasant, cooperat tessy. HEENT: PERRL. No OP lesions. HEART: Regular rate and rhythm without murmur. LUNGS: Clear bilaterally with no wheezes or rales. ABDOMEN: Soft, nontender, nondistended, positive bowel sounds. No masses or organomegaly. EXTREMITIES: Warm and dry. Left lower extremity has dressings to the postoperative incision on the left knee. Patient has good distal pulses. LABORATORY DATA: White count 12.2, hemoglobin 13.3, platelets 210. IMPRESSION AND PLAN: 1. Postoperative left knee replacement. The patient is doing well from that perspective. He has mo dest pain, but appears to be generally well controlled. Continue with postop Ortho Plan. 2. Remote history of ventricular tachycardia. The impression this was a quite remote and has been s table over a long duration of time. The patient does not appear to need any significant workup for t hat as he is stable on the beta gia. Patient has remained on his beta gia in the perioperati ve period. We will continue that for now. 3. Hyperlipidemia. We will continue with the patient's home statin medication.
[2017-10-14] MEDS: Atorvastatin Calcium 20 MG TAB PO SCH (20:25)
[2017-10-15] MEDS: Sodium Chloride 0.9% 1,000 ML IV SCH ×2 (00:07→16:14)
[2017-10-15 05:40] LABS: Hemoglobin 13.3 g/dL (14.0-18.0); Mean Corpuscular HGB CONC 32.9 g/dL (32.0-36.0); Mean Corpuscular Hemoglobin 29.9 pg (27.0-31.0); Mean Corpuscular Volume 90.8 fL (78.0-98.0); Mean Platelet Volume 7.9 fL (7.4-10.4); Platelet Count 177 thou/uL (130-400); Red Blood Cell (RBC) Count 4.46 mill/uL (4.70-6.10); White Blood Cell (WBC) Count 11.2 thou/uL (4.8-10.8)
[2017-10-15] MEDS: CeleCOXIB 100 MG CAP PO SCH (09:30)
[2017-10-15] MEDS: Aspirin 81 mg Enteric Coated Tablet PO SCH ×2 (09:31→20:03)
[2017-10-15] MEDS: Senokot S 8.6-50 MG TAB PO SCH ×2 (09:31→20:02)
[2017-10-15] MEDS: Metoprolol Tartrate 25 MG TAB PO SCH ×2 (09:31→20:02)
[2017-10-15] MEDS: Ferrous Gluconate 324 MG TAB PO SCH ×2 (09:31→20:03)
[2017-10-15] MEDS: Multivitamin W/ Minerals 1 TAB PO SCH (09:32)
[2017-10-15] MEDS: Ropivacaine HCl/PF 250 ML in Premix Bag 1 BAG NERVE BLCK SCH (13:43)
--- NOTE | 2017-10-15 17:12 | PDOC.PN ---
- Subjective Encounter Start Date: 10/15/17 Encounter Start Time: 17:10 Mr. Ortiz was seen today in follow-up of medical management following Left TKR. He does not have any complaints, but is confused asking for his , and he believes he in at home. - Objective MAR Reviewed: Yes Vital Signs & Weight: Vital Signs (12 hours) Temp Pulse Resp BP BP Pulse Ox 10/15/17 16:13 72 18 10/15/17 12:00 98.4 F 69 18 151/81 H 151/81 H 97 10/15/17 09:32 98.5 F 71 18 95 10/15/17 07:44 98.5 F 71 18 153/76 H 95 Weight Admit Weight 220 lb Weight 220 lb I&O: 10/14/17 10/15/17 10/16/17 06:59 06:59 06:59 Intake Total 1500 1140 Output Total 300 1100 Balance 1200 40 Result Diagrams: 10/15/17 04:21 Phys Exam - Physical Examination HEENT: PERRLA Respiratory: no wheezing, no rales, no rhonchi, clear to auscultation bilateral Cardiovascular: RRR, no significant murmur, no rub Gastrointestinal: soft, non-tender, positive bowel sounds Musculoskeletal: no edema Dx/Plan (1) Status post total left knee replacement Code(s): Z96.652 - PRESENCE OF LEFT ARTIFICIAL KNEE JOINT Status: Acute (2) HLD (hyperlipidemia) Code(s): E78.5 - HYPERLIPIDEMIA, UNSPECIFIED Status: Chronic (3) HTN (hypertension) Code(s): I10 - ESSENTIAL (PRIMARY) HYPERTENSION Status: Chronic (4) Delirium Code(s): R41.0 - DISORIENTATION, UNSPECIFIED Status: Acute - Plan * Delirium- mild and likely due to [place]- should avoid going forward * HTN- blood pressure is stable * Continue PT/ OT * Rehab screen pending.
[2017-10-15] MEDS ORDERED: Ropivacaine 0.2% 550 ML 550 ML NERVE BLCK SCH (17:48)
[2017-10-15 19:59] VITALS: BP 164/80; TEMP 99
[2017-10-15] MEDS: Atorvastatin Calcium 20 MG TAB PO SCH (20:02)
--- NOTE | 2017-10-17 01:18 | DIS ---
DATE OF ADMISSION: 10/13/2017 DATE OF DISCHARGE: 10/15/2017 PRIMARY CARE PHYSICIAN: Dr. Alejandro Bernal. DISCHARGE DIAGNOSES: 1. Left total knee replacement. 2. Hypertension. 3. Hyperlipidemia. 4. History of prostate cancer. 5. History of transient ischemic attack. DISCHARGE MEDICATIONS: Include Lopressor 12.5 mg twice a day, Lipitor 20 mg at bedtime, and aspirin 81 mg a day. CODE STATUS: FULL CODE. ALLERGIES: No known drug allergies. HOSPITAL COURSE: Mr. Ortiz is a pleasant 82-year-old gentleman who was admitted for an elective left total knee replacement. The patient had the procedure done on 10/13/2017. He had an uneventful pos toperative course except for some mild delirium, which was attributed to [place]. The Hospitalist Maximiliano pineda was consulted for medical management. His blood pressure remained more or less stable during his hospital stay and he was subsequently discharged to inpatient rehab on 10/15/2017.
== END 2017-10-15 20:18 | DRG 470 ==
LOC: SDC 06:03 → SJJU 09:39
PROVIDERS: ADMIT Orthopaedic Surgery; ATTEND Orthopaedic Surgery
PROC: 0SRD0J9 Replacement of Left Knee Joint with Synthetic Substitute, Cemented, Open Approach (ICD-10-PCS; principal; 2017-10-13)
DX: M17.12 Unilateral primary osteoarthritis, left knee (principal); E78.5 Hyperlipidemia, unspecified; I10 Essential (primary) hypertension; Z91.81 History of falling; Z85.46 Personal history of malignant neoplasm of prostate; Z86.73 Personal history of transient ischemic attack (TIA), and cerebral infarction without residual deficits
CPT/HCPCS: 36415; 85027; 86850; 86900; 86901; 93005; 93010; A4306; C1713; C1776; G8978-GP-CL; G8979-GP-CJ; J2001; J2250; J2405; J2704; J2795; J3010; J3370; J7050; S0020

== ENCOUNTER 2017-10-24 13:01 | Emergency (ER) | payer MEDICARE, OTHER ==
[2017-10-24 13:52] LABS: #Basophils 0.1 thou/uL (0.0-0.2); #Eosinphils 0.3 thou/uL (0.0-0.7); #Monocytes 0.6 thou/uL (0.11-0.59); #Neutrophils 5.5 thou/uL (1.40-6.50); %Basophils 0.7 % (0.0-1.0); %Lymphocytes 23.8 % (21.0-51.0); %Monocytes 6.5 % (0.0-10.0); %Neutrophils 64.9 % (42.0-75.0); Hemoglobin 13.5 g/dL (14.0-18.0); Mean Corpuscular HGB CONC 34.1 g/dL (32.0-36.0); Mean Corpuscular Hemoglobin 30.9 pg (27.0-31.0); Mean Corpuscular Volume 90.5 fL (78.0-98.0); Mean Platelet Volume 7.2 fL (7.4-10.4); Platelet Count 297 thou/uL (130-400); RBC Distribution Width 12.8 % (11.5-14.5); Red Blood Cell (RBC) Count 4.36 mill/uL (4.70-6.10); White Blood Cell (WBC) Count 8.5 thou/uL (4.8-10.8)
[2017-10-24 14:13] LABS: ALT (SGPT) 55 U/L (8-55); AST (SGOT) 38 U/L (5-34); Albumin 3.6 g/dL (3.4-4.8); Alkaline Phosphatase 62 U/L (40-150); Anion Gap 12 mmol/L (10-20); BUN (Urea Nitrogen) 24 mg/dL (8.4-25.7); Bilirubin, Total 0.4 mg/dL (0.2-1.2); CRP (Inflammatory) 3.09 mg/dL (= or < 0.5); Calc. Creatinine Clearance 0 mL/min (70-130); Calcium 9.4 mg/dL (7.8-10.44); Carbon Dioxide 25 mmol/L (23-31); Chloride 107 mmol/L (98-107); Estimated GFR-MDRD 50; Glucose 128 mg/dL (83-110); Potassium 3.9 mmol/L (3.5-5.1); Protein, Total 6.6 g/dL (5.8-8.1); Sodium 140 mmol/L (136-145)
--- NOTE | 2017-10-24 14:48 | ULT ---
ULTRASOUND LEFT LOWER EXTREMITY VENOUS DOPPLER: HISTORY: Lower extremity swelling, edema, and pain. Recent knee replacement. COMPARISON: Venous Doppler 07/08/17. TECHNIQUE: Real-time, márquez scale, color Doppler, and spectral analysis of the left lower extremity venous system was performed. The common femoral, femoral, proximal portions, greater saphenous, and deep femoral veins as well as the popliteal and posterior tibial veins were interrogated. FINDINGS: Mild bilateral lower extremity edema. Mild bilateral lower extremity edema. Normal flow, augmentati on, and compression. IMPRESSION: No deep vein thrombosis. POS: [facility]
== END 2017-10-24 16:12 | disposition home or self-care (01) ==
LOC: ERS 13:01
DX: G89.18 Other acute postprocedural pain (principal); M25.562 Pain in left knee
CPT/HCPCS: 36415; 80053; 85025; 85652; 86140

== ENCOUNTER 2018-01-11 14:47 | Inpatient (IN) | payer MEDICARE, OTHER ==
[2018-01-11] MEDS ORDERED: Senokot S 8.6-50 MG TAB PO PRN ×2 (17:01)
[2018-01-11] MEDS ORDERED: Acetaminophen 500 MG TAB PO PRN (17:01)
[2018-01-11] MEDS ORDERED: hydrALAZINE 20 MG/ML VIAL SLOW IVP PRN (17:01)
[2018-01-11] MEDS ORDERED: Bisacodyl 5 MG TAB PO PRN ×2 (17:01)
[2018-01-11] MEDS ORDERED: Calcium Carbonate 500 MG ChewTAB PO PRN (17:01)
[2018-01-11] MEDS ORDERED: cloNIDine 0.1 MG TAB PO PRN (17:01)
[2018-01-11] MEDS ORDERED: Acetaminophen 325 MG TAB PO PRN (17:01)
[2018-01-11] MEDS ORDERED: Ondansetron PF 4 MG/2 ML Vial IVP PRN ×2 (17:01)
[2018-01-11] MEDS ORDERED: Diabetic Tussin 200 MG/10 ML UDCUP PO PRN (17:01)
[2018-01-11] MEDS ORDERED: Benzonatate 100 MG CAP PO PRN (17:01)
[2018-01-11] MEDS ORDERED: Nitroglycerin 0.4 MG TAB (25 Tab Bottle) SL PRN (17:01)
[2018-01-11 17:07] VITALS: BMI 29.8
[2018-01-11] MEDS: Sodium Chloride 0.9% 1,000 ML IV SCH (18:34)
[2018-01-11] MEDS ORDERED: Ondansetron ODT 4 MG TAB PO PRN (18:48)
[2018-01-11] MEDS ORDERED: Famotidine 20 MG TAB PO SCH (21:00)
[2018-01-12] MEDS: Sodium Chloride 0.9% 1,000 ML IV SCH (04:40)
[2018-01-12 04:54] LABS: #Eosinphils 0.1 thou/uL (0.0-0.7); #Lymphocytes 2.4 thou/uL (1.20-3.40); #Monocytes 0.7 thou/uL (0.11-0.59); #Neutrophils 4.1 thou/uL (1.40-6.50); %Basophils 0.5 % (0.0-1.0); %Eosinophils 1.3 % (0.0-10.0); %Lymphocytes 32.8 % (21.0-51.0); %Monocytes 9.2 % (0.0-10.0); %Neutrophils 56.3 % (42.0-75.0); Hemoglobin 11.5 g/dL (14.0-18.0); Mean Corpuscular HGB CONC 32.1 g/dL (32.0-36.0); Mean Corpuscular Hemoglobin 29.3 pg (27.0-31.0); Mean Corpuscular Volume 91.2 fL (78.0-98.0); Platelet Count 203 thou/uL (130-400); RBC Distribution Width 13.3 % (11.5-14.5); Red Blood Cell (RBC) Count 3.93 mill/uL (4.70-6.10); White Blood Cell (WBC) Count 7.3 thou/uL (4.8-10.8)
[2018-01-12 05:10] LABS: ALT (SGPT) 9 U/L (8-55); AST (SGOT) 13 U/L (5-34); Albumin 3.3 g/dL (3.4-4.8); Alkaline Phosphatase 42 U/L (40-150); Anion Gap 10 mmol/L (10-20); BUN (Urea Nitrogen) 24 mg/dL (8.4-25.7); Bilirubin, Total 0.5 mg/dL (0.2-1.2); Calc. Creatinine Clearance 43 mL/min (70-130); Calcium 8.6 mg/dL (7.8-10.44); Carbon Dioxide 25 mmol/L (23-31); Chloride 109 mmol/L (98-107); Estimated GFR-MDRD 39; Globulin 2.7 g/dL (2.4-3.5); Glucose 86 mg/dL (83-110); Potassium 4.4 mmol/L (3.5-5.1); Sodium 140 mmol/L (136-145)
[2018-01-12 05:34] LABS: Bilirubin Negative (Negative); Blood, Urine Moderate (Negative); Clarity CLEAR (Clear); Glucose, Urine (Dipstick) Negative (Negative); Leukocyte Trace (Negative); Nitrite Negative (Negative); Protein, Urine (Dipstick) Trace mg/dL (Neg-Trace); Specific Gravity, Urine 1.017 (1.002-1.036); Urobilinogen 0.2 mg/dL (0.2-1.0); pH, Urine 5.5 (5.0-9.0)
[2018-01-12 05:37] LABS: Bacteria/HPF None Seen HPF (None Seen); Hyaline Casts/LPF 4-6 HYALINE CAST LPF (0-3 Hyaline); Pathc Cast-AUWi Flag 1.16 (0-2.49); Squamous Epithelial 0-3 HPF (0-3)
--- NOTE | 2018-01-12 07:24 | HP ---
DATE OF ADMISSION: 01/11/2018 PRIMARY CARE PHYSICIAN: Alejandro Bernal M.D. CHIEF COMPLAINT: Vomiting and right-sided kidney pain. HISTORY OF PRESENT ILLNESS: Mr. Ortiz is a pleasant 82-year-old male with past medical history of hy pertension, dyslipidemia, prostate cancer, TIA and nephrolithiasis, status post shock wave lithotrips y [address] Puente, presented to the ER in [facility] with the above-mentioned complaint. History is mainly obtained by the patient himself. No records were sent with the patient except for the CD of his CT scan from [place]. Mr. Ortiz reports that 3 years ago, he get left-sided kidney stone removed by shock wave lithotripsy by Dr. Puente. Even at that time it was noticed that he had a right-sided kidney stone. It was medi patsy managed up until now. The patient reports that it has not given him any trouble, but 2 days ag o he started to notice some sharp twinges in his right side. It was followed by vomiting next day mu ltiple times. He presented to the ER in [place] yesterday, but was sent home back. This morning whe n he woke up, he started to have significant pain in the right side in the right flank with radiation anteriorly and down his leg and presented to the ER. This time around, they did a CT scan which rep ortedly showed a 6 mm stone with some mild right-sided hydronephrosis. Reportedly, his renal functio n and urinalysis were unremarkable. There was no evidence of bacteria in the urine per the report. He was admitted as a direct admit for further urological evaluation. Apparently, the ER physician in [facility], has discussed the case with long line teamster urologist, Dr. Pena who has accepte d the patient. At this time on my evaluation, Mr. Ortiz is quite comfortable and denies any pain. He has urinated a t least once since up on the floor which was incontinent. He denies seeing any blood in his urine. He denies any fever or chills. He ate his dinner in the hospital room without feeling nauseated. He denies any fever or chills lately. PAST MEDICAL HISTORY: 1. Hypertension. 2. Dyslipidemia. 3. Transient ischemic attack. 4. Nephrolithiasis. 5. History of nonsustained supraventricular tachycardia. 6. History of prostate cancer. PAST SURGICAL HISTORY: 1. Shock wave lithotripsy for right-sided renal stone. 2. Surgical resection of prostate cancer. 3. Penile prosthesis implant. 4. Cholecystectomy. SOCIAL HISTORY: He is and lives with his . No history of drug, tobacco or alcohol use. He is a [place] [employer] . FAMILY HISTORY: Diabetes and hypertension. One of his brothers of lung cancer after exposure t o Agent [place]. ALLERGIES: No known medication allergies. He is very adamant that he should not receive any [place] o r any strong pain medications as they make him hallucinate really bad. CURRENT MEDICATIONS: Omeprazole 40 mg daily, Zofran p.o. every 6 hours as needed, aspirin 81 mg [place] y. CODE STATUS: FULL CODE, discussed with the patient in detail. REVIEW OF SYSTEMS: A 12-point review of systems was done and it is negative except for those mention ed in the history and physical. LABORATORY EXAMINATION: Unknown, but normal per the report. No lab results were sent from [facility] with the patient. PHYSICAL EXAMINATION: VITAL SIGNS: Temperature 98.5, pulse of 82, respirations 18, saturating 93% on room air, blood press ure 163/84. GENERAL: No acute distress, awake, alert, oriented x3. HEENT: Mucous membrane is moist and pink. No oropharyngeal exudate or erythema. Head is normocepha lic, atraumatic. Pupils equal, reactive to light and accommodation. Extraocular movement intact. NECK: Supple without any lymphadenopathy, JVD or bruit. CHEST: Clear to auscultation without any wheezing, rales or rhonchi. Rate and rhythm is regular wit hout any murmur, rubs or gallops. ABDOMEN: Mildly tender to palpation in the right flank area. No rebound, guarding or rigidity. [place] el sounds are equally heard in all 4 quadrants. EXTREMITIES: Free of any cyanosis, clubbing, or edema. NEUROLOGIC: Nonfocal. SKIN: Free of any rashes or bruises. Feel warm and dry to touch. PSYCHIATRIC: Normal affect. IMPRESSION AND PLAN: Right-sided nephrolithiasis with renal colic and mild hydronephrosis. We will repeat a urinalysis to rule out urinary tract infection. At this time, he is not exhibiting any sign s and symptoms of urinary tract infection or sepsis. We will start him on gentle intravenous fluid h ydration and consult Urology in the morning for possible surgical IMPRESSION AND PLAN: 1. At this time, there is no indication for antibiotics until his urinalysis suggests infection. He will be n.p.o. after midnight for possible procedure in the morning. We will hold his morning dose of aspirin as well. Symptomatic supportive care will be provided. 2. History of nonsustained ventricular tachycardia in the past. The patient was seen in our facilit y in 01/2017, at which time, he was started on beta-blockers. For some reason, the patient does not remember this and is not on any beta-blockers at this point. We will monitor him. 3. Hypertension. Once again, the patient is not on any antihypertensive medications for some reason . We will treat him with p.r.n. antihypertensives while in the hospital. 4. History of prostate cancer, status post prostatectomy. 5. Code status: FULL CODE. Discussed with the patient. 6. Deep venous thrombosis and gastrointestinal prophylaxis and p.r.n. medications. DISPOSITION: Mr. Ortiz is currently being admitted to the hospital for symptomatic .
[2018-01-12] MEDS ORDERED: Sodium Chloride 0.9% 1,000 ML IV SCH (08:56)
[2018-01-12] MEDS ORDERED: cefTRIAXone\\ROCEPHIN 1 GM in Sodium Chloride 0.9% 100 ML IVPB SCH (09:00)
[2018-01-12] MEDS ORDERED: Non-Formulary Item 1 EACH (Omeprazole [Omeprazole] 40 MG) PO SCH (09:00)
[2018-01-12] MEDS ORDERED: Enoxaparin Sodium 40 MG/0.4 ML SYRINGE SC SCH (09:00)
[2018-01-12] MEDS ORDERED: Iothalamate Meglumine 60% 50 ML VIAL FS ONE (09:44)
[2018-01-12] MEDS ORDERED: Fentanyl 100 MCG/2 ML VIAL ONE (10:00)
--- NOTE | 2018-01-12 11:56 | OP ---
DATE OF PROCEDURE: 01/12/2018. PREOPERATIVE DIAGNOSIS: Left distal ureteral stone and renal insufficiency. POSTOPERATIVE DIAGNOSIS: Left distal ureteral stone and renal insufficiency. PROCEDURE PERFORMED: Cystoscopy, left retrograde, left stent. SURGEON: Dr. Kaden Puente. ANESTHETIC: General. ESTIMATED BLOOD LOSS: Minimal. FINDINGS: The bladder was free of tumor, foreign bodies or stone. He has an absent prostate. He boggs s a penile prosthesis. There were 2 ureteral orifices. Retrograde study showed a dilated left urete r with a bifid upper collecting system and a 6 mm distal ureteral stone. We initially attempted to p ass a 6 x 26 and that being too long, we ended up using a 6 x 24 cm. The string was not left client support analyst d. No Pryor catheter was left indwelling. OPERATIVE TECHNIQUE: After obtaining written and verbal consent from the patient and receiving Rocep hin, he was taken to the operating suite. He was also given some vancomycin during the case. He was given a general anesthetic, oral obturator intubation, placed in dorsal lithotomy position, sterilel y prepped and draped. Cystoscopy was performed with a 20 Romansh sheath. We used this because of the penile prosthesis rather than 22. It was placed under direct vision through the male urethra with a 30-degree lens, a video camera and monitor into the urinary bladder. The bladder was examined with the above findings with both the 30 and the 70 degree lens. We then used a 30 degree lens and fed a guidewire to the left side. We use C-arm, which was a little difficult because of the patient's posi tioning on the table and we could see the stone, see the majority of the ureter, but could not see th e upper collecting system well and placing a stent up this side over the wire, it ended up being curl ed high in the upper pole calyceal system, so he was repositioned so we could see this better and the n we switched to actually a shorter stent, a 24 cm one by removing the 26th passing a wire up through it and then discarding it over the wire and then passing the 6 x 24 to get the stent placed into the renal pelvis, so he would not have an excessive amount of stent hanging into the urinary bladder. O nce this was completed, the bladder was drained, the instruments were removed. He was taken out of t dorsal lithotomy position, awakened, extubated, and taken by stretcher to recovery room.
[2018-01-12] MEDS ORDERED: Promethazine HCl 25 MG/ML VIAL SLOW IVP PRN (12:03)
[2018-01-12] MEDS ORDERED: Promethazine HCl 25 MG/ML VIAL IM PRN (12:03)
[2018-01-12] MEDS ORDERED: Ondansetron HCl/PF 4 MG/2 ML Vial IVP PRN (12:03)
[2018-01-12] MEDS ORDERED: Ondansetron PF 4 MG/2 ML Vial ONE (14:57)
[2018-01-12] MEDS ORDERED: Lidocaine 1% PF 5 ML VIAL ONE (14:57)
[2018-01-12] MEDS ORDERED: PROPOFOL 200 MG/20 ML VIAL ONE (14:57)
--- NOTE | 2018-01-12 15:09 | RAD ---
LEFT RETROGRADE UROGRAM: Date: 01/12/18 HISTORY: Left ureteral stent placement/ureteral stones. FINDINGS: Fluoroscopic images demonstrate evidence of left retrograde urogram. There does appear to be mild hyd ronephrosis, as well as dilatation of the left ureter. Surgical clips overlie the pelvis. Correlation with intraoperative findings is recommended. Fluoroscopic dose is 35.3 mGy*cm^2 (9.01 Gy*cm^2). POS: [facility]
[2018-01-12 15:14] VITALS: BP 145/82; TEMP 98.4
[2018-01-12] MEDS ORDERED: Nitrofurantoin Monohyd/M-Cryst 100 MG CAP PO SCH (21:00)
--- NOTE | 2018-01-13 01:17 | DIS ---
DATE OF ADMISSION: 01/11/2018 DATE OF DISCHARGE: 01/12/2018 PRIMARY CARE PHYSICIAN: Alejandro Bernal MD PRIMARY UROLOGIST: Dr. Kaden Puente. INPATIENT CONSULTATIONS: Urology, Dr. Puente. DISCHARGE DIAGNOSES: 1. Nephrolithiasis on the left side with acute renal insufficiency. 2. Acute renal insufficiency. 3. History of nephrolithiasis. 4. Hypertension. 5. Dyslipidemia. 6. History of transient ischemic attack. DISCHARGE MEDICATIONS: Resume home medications as per the HPI. NEW MEDICATIONS: Nitrofurantoin 100 mg daily as per urologist. PROCEDURES DONE IN THE HOSPITAL: Retrograde pyelogram as well as cystoscopy, left retrograde and lef t stent placement by Dr. Puente earlier this morning. HISTORY OF PRESENT ILLNESS AND BRIEF HOSPITAL COURSE: Mr. Ortiz is a pleasant 82-year-old male with known history of right-sided nephrolithiasis, requiring shock-wave lithotripsy 3-4 years ago, came wi th renal colic on the left side with known left-sided renal stone. He was found to have elevated cre atinine to 2.25 in [facility] and [place] and was admitted to our facility as a direct admit. Neena vivas see admission history and physical for further detail. He was hemodynamically stable. Mr. Ortiz w as seen by Dr. Puente and he underwent a left-sided ureteral stent placement with retrograde pyelogra m this morning and since the procedure, he has been feeling well and has been cleared for discharge. His urine was sent for culture from [facility] as well as repeated here. The results are pending at this time. This morning, his creatinine is down to 1.69. He has been cleared by Dr. Puente for dis charge and is eager to go home and will be discharged shortly. I have seen and examined him prior to discharge. PHYSICAL EXAMINATION: VITAL SIGNS: Most recent vital signs, temperature 98.4, pulse of 76, respirations 20, saturating 93% on room air, blood pressure 145/82. GENERAL: No acute distress, awake, alert, oriented x3. CHEST: Clear to auscultation bilaterally. Rate and rhythm are regular. He will follow up with primary care physician in 1-[address] Puente in 1-2 weeks as well. Urin e culture results will be followed as an outpatient. Discharge plan was discussed with the patient a nd his in the room and they verbalized understanding.
--- NOTE | 2018-01-13 11:38 | PQF ---
HUMERA JENSEN RICHA MD [id number] CLINICAL DOCUMENTATION IMPROVEMENT CLARIFICATION FORM: ICD-10 Updated PLEASE DO AN ADDENDUM TO THE PROGRESS NOTE WITH ANY DOCUMENTATION UPDATES OR ADDITIONS AND CARRY THROUGH TO DC SUMMARY. THANK YOU. DATE: 01-13-18 ATTN: DR. LEO Please exercise your independent, professional judgment in responding to the clarification form. Clinical indicators are provided on the bottom of this form for your review Please check appropriate box(s): [X ] Acute Renal Failure (ARF) / Acute Kidney Injury (DIEGO) [ ] Acute Tubular Necrosis (ATN) [ ] Acute on Chronic Renal Failure please specify Stage of CKD (see below) [ ] Other diagnosis [ ] Unable to determine In addition, please specify: Present on Admission (POA): [ X ] Yes [ ] No [ ] Unable to determine National Kidney Foundation Guidelines for CKD Staging Stage I Kidney damage with normal or increased GFR GFR > 90 Stage II Kidney damage with mildly decreased GFR GFR 60-89 Stage III Kidney damage with moderately decreased GFR GFR 30-59 Stage IV Kidney damage with severely decreased GFR GFR 16-29 Stage V Kidney failure GFR<15 ESRD End Stage Renal Disease On dialysis Acute Renal Failure/Acute Kidney Failure defined as: Increases in SCr by (>) 0.3 mg/dl within 48 hours OR- Increases in SCr by (>) 1.5 times baseline, known or presumed to have occurred within the prior 7 days OR- Urine volume < 0.5 ml/kg/hour for 6 hours (KDIGO supplement 2012 for RIFLE/GEETHA criteria) For continuity of documentation, please document condition throughout progress notes and discharge summary. Thank You. CLINICAL INDICATORS - SIGNS / SYMPTOMS / LABS LABS: BUN CREAT GFR UA 11-5 24 1.69 39 4-6 HYALINE CAST 11-4 H&P (FELIPA): VOMITING; RIGHT -SIDED KIDNEY PAIN ; CT SCAN 6mm STONE W/ MILD RIGHT-SIDED HYDRONEPHROSIS 11-5 OP NOTE (DEANA): RENAL INSUFFICIENCY - DC SUMMARY (FELIPA): ACUTE REANL INSUFFICIENCY RISK FACTORS 11- OP NOTE (DEANA): LEFT DISTAL URETERAL STONE AND RENAL INSUFFICIENCY TREATMENTS: - OP NOTE (DEANA): CYSTOSCOPE, LEFT RETROGRADE, LEFT STENT MAR: IVF - NS 01-12 THANK YOU, DESIRE (This form is maintained as a part of the permanent medical record) 2014 [email or web address]. All Rights Reserved Desire Vivas RN, BS [email or web address] [employer] [facility]
== END 2018-01-12 16:01 | disposition home or self-care (01) | DRG 661 ==
LOC: T4-A 16:42
PROVIDERS: ADMIT Internal Medicine; ATTEND Internal Medicine
PROC: 0T778DZ Dilation of Left Ureter with Intraluminal Device, Via Natural or Artificial Opening Endoscopic (ICD-10-PCS; principal; 2018-01-12)
PROC: BT1F1ZZ Fluoroscopy of Left Kidney, Ureter and Bladder using Low Osmolar Contrast (ICD-10-PCS; 2018-01-12)
DX: N13.2 Hydronephrosis with renal and ureteral calculous obstruction (principal); I10 Essential (primary) hypertension; N28.9 Disorder of kidney and ureter, unspecified; E78.5 Hyperlipidemia, unspecified; Z85.46 Personal history of malignant neoplasm of prostate; Z86.73 Personal history of transient ischemic attack (TIA), and cerebral infarction without residual deficits; Z90.49 Acquired absence of other specified parts of digestive tract; Z83.3 Family history of diabetes mellitus; Z82.49 Family history of ischemic heart disease and other diseases of the circulatory system
CPT/HCPCS: 36415; 74420; 80053; 81001; 85025; C1758; J0696; J2001; J2405; J2704; J3010; J3370; J7050; Q9961

== ENCOUNTER 2018-01-21 06:08 | Day surgery (SDC) | payer MEDICARE, OTHER ==
[2018-01-20 11:34] VITALS: BMI 29.0
[2018-01-21] MEDS ORDERED: Sodium Chloride 0.9% 100 ML ONE (06:47)
[2018-01-21] MEDS ORDERED: cefTRIAXone\\ROCEPHIN 1 GM VIAL ONE (06:47)
[2018-01-21] MEDS ORDERED: Fentanyl 100 MCG/2 ML VIAL ONE (07:12)
[2018-01-21 07:13] LABS: Platelet Count 249 thou/uL (130-400)
[2018-01-21 08:06] LABS: PTT 32.4 SEC (22.9-36.1); Prothrombin Time 12.8 SEC (12.0-14.7)
--- NOTE | 2018-01-21 08:24 | RAD ---
ABDOMEN ONE VIEW: History: Urinary tract calcifications. Comparison: 09-17-12, 01-12-18 FINDINGS: Visualized bowel gas pattern is nonspecific. Double pigtail stent overlies the course of the left ure ter. Adjacent to the lower stent at the expected location of the left ureterovesicular junction is an irregular shaped calcification that may represent a distal left ureteral calculus. Metallic clips also overlie the gallbladder fossa and lower pelvis. POS: [facility]
[2018-01-21] MEDS ORDERED: hydrALAZINE 20 MG/ML VIAL ONE (09:40)
--- NOTE | 2018-01-21 11:38 | OP ---
DATE OF PROCEDURE: 01/21/2018 PREOPERATIVE DIAGNOSIS: Left distal ureteral . POSTOPERATIVE DIAGNOSIS: Left distal ureteral . PROCEDURE PERFORMED: Left ESWL. SURGEON: Dr. Kaden Puente. ANESTHETIC: General. ESTIMATED BLOOD LOSS: Not recorded. FINDINGS: A 6-7 mm left distal stone that was treated with 3000 shocks at level 5-6. It did appear to change, but it did not really moved, so for this reason stent was not removed. OPERATIVE TECHNIQUE: Obtain written and verbal consent from the patient. After documenting normal p reoperative blood work and being sure we could see stone on a preoperative KUB. He was taken to the operating suite. He was placed in supine position on the treatment table. PlexiPulses were placed o n his lower extremities and turned on. He was given a general anesthetic, oral obturator intubation. He was coupled to the lithotripsy unit. The stone was placed in treatment focal point and shockwav e therapy was commenced. Then started a low kV and slowly worked up to level 6. Fluoroscopy was use d intermittently to document stone fragmentation and to reposition as necessary. After 3000 shocks, the procedure was terminated. The stent was not removed. He was awakened, extubated, and taken by kasia rodriguez to recovery room.
[2018-01-21] MEDS ORDERED: Lidocaine 1% PF 5 ML VIAL ONE (16:41)
[2018-01-21] MEDS ORDERED: PROPOFOL 200 MG/20 ML VIAL ONE (16:41)
== END 2018-01-21 11:35 | disposition home or self-care (01) ==
LOC: SDC 06:08
PROVIDERS: ATTEND Urology
PROC: 0TF7XZZ Fragmentation in Left Ureter, External Approach (ICD-10-PCS; principal; 2018-01-21)
DX: N20.1 Calculus of ureter (principal); I10 Essential (primary) hypertension; K21.9 Gastro-esophageal reflux disease without esophagitis; Z86.73 Personal history of transient ischemic attack (TIA), and cerebral infarction without residual deficits; Z88.5 Allergy status to narcotic agent; Z79.899 Other long term (current) drug therapy
CPT/HCPCS: 36415; 74018; 85576; 85610; 85730; J0360; J0696; J2001; J2704; J3010; J7050

== ENCOUNTER 2018-02-16 10:43 | Day surgery (SDC) | payer MEDICARE, OTHER ==
[2018-02-13 16:07] VITALS: BMI 29.9
[2018-02-16] MEDS ORDERED: Levofloxacin 500 mg/D5W 100 ml Premix Bag ONE (11:35)
[2018-02-16 11:59] LABS: #Basophils 0.1 thou/uL (0.0-0.2); #Eosinphils 0.2 thou/uL (0.0-0.7); #Lymphocytes 3.2 thou/uL (1.20-3.40); #Monocytes 0.7 thou/uL (0.11-0.59); #Neutrophils 4.7 thou/uL (1.40-6.50); %Basophils 0.8 % (0.0-1.0); %Lymphocytes 35.9 % (21.0-51.0); %Monocytes 7.9 % (0.0-10.0); %Neutrophils 53.5 % (42.0-75.0); Hemoglobin 14.3 g/dL (14.0-18.0); Mean Corpuscular HGB CONC 33.2 g/dL (32.0-36.0); Mean Corpuscular Hemoglobin 29.6 pg (27.0-31.0); Mean Corpuscular Volume 89.2 fL (78.0-98.0); Mean Platelet Volume 7.7 fL (7.4-10.4); Platelet Count 294 thou/uL (130-400); RBC Distribution Width 13.1 % (11.5-14.5); Red Blood Cell (RBC) Count 4.83 mill/uL (4.70-6.10); White Blood Cell (WBC) Count 8.8 thou/uL (4.8-10.8)
[2018-02-16 12:05] LABS: Prothrombin Time 13.3 SEC (12.0-14.7)
[2018-02-16 12:06] LABS: PTT 34.6 SEC (22.9-36.1)
[2018-02-16 12:25] LABS: Anion Gap 12 mmol/L (10-20); BUN (Urea Nitrogen) 23 mg/dL (8.4-25.7); Calc. Creatinine Clearance 53 mL/min (70-130); Calcium 9.9 mg/dL (7.8-10.44); Carbon Dioxide 25 mmol/L (23-31); Chloride 105 mmol/L (98-107); Estimated GFR-MDRD 47; Glucose 98 mg/dL (83-110); Potassium 4.1 mmol/L (3.5-5.1); Sodium 138 mmol/L (136-145)
[2018-02-16] MEDS ORDERED: Iothalamate Meglumine 60% 50 ML VIAL FS ONE (13:20)
[2018-02-16] MEDS ORDERED: Fentanyl 100 MCG/2 ML VIAL ONE (13:44)
--- NOTE | 2018-02-16 21:24 | OP ---
DATE OF PROCEDURE: 02/16/2018 PREOPERATIVE DIAGNOSIS: Left distal ureteral stone. POSTOPERATIVE DIAGNOSIS: Left distal ureteral stone. PROCEDURES PERFORMED: Left ureteroscopy, laser lithotripsy with stone retrieval. ANESTHESIA: General, TIVA. ESTIMATED BLOOD LOSS: Minimal. FINDINGS: There is a distal ureteral stone that could just not easily get through by basketing, so we used a laser to break it up into a smaller piece that we could remove. OPERATIVE TECHNIQUE: We obtained written and verbal consent from the patient. After receiving IV antibiotics, he was taken to the operating suite. He was placed in supine position on the treatment table. PlexiPulses were placed on his lower extremities and turned on. He was given TIVA anesthetic and oral obturator intubation. He was placed in the dorsal lithotomy position, sterilely prepped and draped. Cystoscopy was performed with a 22-[place] sheath, this was passed under direct vision, well lubricated, through the male urethra into the urinary bladder with aid of a 30-degree lens of video camera and monitor. The bladder was filled and emptied 2 or 3 times and then the stent was grasped and its distal end was brought out through the urethral meatus and a guidewire was fed up through it. Stent was removed and discarded. We then brought in with a small caliber, short rigid ureteroscope passed under direct vision with aid of a video camera and monitor through the male urethra into the bladder and then up the left ureter adjacent to the stent about 5 to 6 cm and the stone was visualized. We basketed little lip of tissue that would not let it easily come through, so we released it from the basket, brought in a small caliber Holmium laser fiber and we disintegrated the edges of it until it was small enough to basket and remove, which we did. We then repeated ureteroscopy looking up about mid ureter, we saw no other stone fragments remaining. We backloaded the guidewire through the 22-[place] sheath and fed a 5-[place] Pollack catheter up in the region of the renal pelvis, removing the guidewire and injecting about 15 mL of contrast. There was no extravasation. There were little filling defects most likely perhaps a small blood clot or air bubbles. We then removed the Pollack catheter and watched over the next 5 minutes effluxed clear urine without difficulty and the left ureter cleared well. For this reason, the stent was not replaced. At this point, the bladder was drained, the instruments were removed, the patient was taken out of the dorsal lithotomy position, awakened, and extubated and taken by a stretcher to the recovery room. Job ID: [id number]
--- NOTE | 2018-02-20 14:11 | RAD ---
LEFT RETROGRADE PYELOGRAM: Date: 02/16/18 HISTORY: Ureteric calculus. FINDINGS/IMPRESSION: Two images during left-sided retrograde pyelogram demonstrate opacification of the left ureter and pe lvicaliceal systems, and placement of a left ureteral stent. There is a calcific density along the le ft distal ureter, likely calculus. POS: [facility]
== END 2018-02-16 16:10 | disposition home or self-care (01) ==
LOC: SDC 10:43
PROVIDERS: ATTEND Urology
PROC: 0TF78ZZ Fragmentation in Left Ureter, Via Natural or Artificial Opening Endoscopic (ICD-10-PCS; principal; 2018-02-16)
DX: N20.1 Calculus of ureter (principal); Z79.2 Long term (current) use of antibiotics; Z79.82 Long term (current) use of aspirin; Z79.899 Other long term (current) drug therapy; Z88.5 Allergy status to narcotic agent
CPT/HCPCS: 52353; 74420; 80048; 85025; 85610; 85730; C1758; 36415; J1956; J3010; Q9961

== ENCOUNTER 2019-01-07 13:40 | Outpatient (CLI) | payer MEDICARE, OTHER ==
--- NOTE | 2019-01-07 16:29 | MRI ---
MRI OF BRAIN WITHOUT CONTRAST: 01/07/19 HISTORY: Memory loss. COMPARISON: 01/14/17. There is ventricular sulci prominence due to cortical atrophy. Multiple foci of T2 prolongation of th e periventricular white matter consistent with chronic small vessel ischemic disease. The ventricular size is stable and the basilar cisterns patent. No restricted diffusion was seen. There is mucosa di sease in the paranasal sinuses. IMPRESSION: 1. Cortical atrophy6. 2. Chronic small vessel ischemic disease. 3. No evidence of acute intracranial process. POS: [facility]
== END 2019-01-07 13:41 | disposition home or self-care (01) ==
LOC: SCSMRI 13:40
PROVIDERS: ATTEND Family Medicine
DX: R41.3 Other amnesia (principal); I67.82 Cerebral ischemia; G31.9 Degenerative disease of nervous system, unspecified
CPT/HCPCS: 70551

== ENCOUNTER 2020-11-03 08:10 | Outpatient (CLI) | payer MEDICARE, OTHER | END 2020-11-03 08:11 | disposition home or self-care (01) | LOC: NM 08:10 | PROVIDERS: ATTEND Psychiatry & Neurology Neurology | DX: G20 Parkinson's disease (principal) | CPT/HCPCS: 78803; A9584 ==